=== PATIENT | male | born 1975 | race Caucasian/White ===

== ENCOUNTER 2024-06-19 11:10 | Outpatient (CLI) | payer OTHER, SELFPAY ==
--- NOTE | 2024-06-19 11:18 | EST_ITS ---
Patient Info Name: Edilson Alvarado Age: 48 years : 1975 Gender: Male Ht: 71 in Wt: 210 lbs BSA: 2.21 m2 HR: 63 bpm BP: 139 / 72 mmHg Exam Date: 06/19/2024 11:22 AM Exam Location: Echo Lab Patient Status: Outpatient Admit Date: 06/19/2024 Staff Ordering Physician: Radha Wisdom PA-C Attending Provider: Radha Wisdom PA-C Exercise Technologist: Elma Aponte [facility] Exercise Physician: Laurent Dunham DO Exam Type: CA stress test treadmill Study Info A treadmill exercise stress test was performed. Summary 1. 1. Negative Stewart exercise stress test for ischemic ST changes by ECG criteria. 2. 2. Good functional capacity, achieving 12 METs of workload. 3. 3. Appropriate HR response to exercise. 4. 4. Appropriate HR recovery at 1 minute post exercise. 5. 5. No imaging with stress testing. 6. 6. Patient informed of the above results. Protocol: Stewart Stress ECG Details Stage: REST Duration (min): 0 min : 59 sec Speed (mph): 0.0 Grade (%): 0 HR (bpm): 64 SBP (mmHg): 139 DBP (mmHg): 72 METS: --- Stage: REST Duration (min): 3 min : 40 sec Speed (mph): 0.0 Grade (%): 0 HR (bpm): 68 SBP (mmHg): 139 DBP (mmHg): 72 METS: --- Stage: STAGE 1 Duration (min): 1 min : 0 sec Speed (mph): 1.7 Grade (%): 10 HR (bpm): 103 SBP (mmHg): 139 DBP (mmHg): 72 METS: --- Stage: STAGE 1 Duration (min): 2 min : 0 sec Speed (mph): 1.7 Grade (%): 10 HR (bpm): 116 SBP (mmHg): 139 DBP (mmHg): 72 METS: --- Stage: STAGE 1 Duration (min): 3 min : 0 sec Speed (mph): 1.7 Grade (%): 10 HR (bpm): 121 SBP (mmHg): 180 DBP (mmHg): 75 METS: --- Stage: STAGE 2 Duration (min): 1 min : 0 sec Speed (mph): 2.5 Grade (%): 12 HR (bpm): 122 SBP (mmHg): 180 DBP (mmHg): 75 METS: --- Stage: STAGE 2 Duration (min): 2 min : 0 sec Speed (mph): 2.5 Grade (%): 12 HR (bpm): 127 SBP (mmHg): 165 DBP (mmHg): 73 METS: --- Stage: STAGE 2 Duration (min): 3 min : 0 sec Speed (mph): 2.5 Grade (%): 12 HR (bpm): 133 SBP (mmHg): 165 DBP (mmHg): 73 METS: --- Stage: STAGE 3 Duration (min): 1 min : 0 sec Speed (mph): 3.4 Grade (%): 14 HR (bpm): 143 SBP (mmHg): 183 DBP (mmHg): 58 METS: --- Stage: STAGE 3 Duration (min): 2 min : 0 sec Speed (mph): 3.4 Grade (%): 14 HR (bpm): 144 SBP (mmHg): 183 DBP (mmHg): 58 METS: --- Stage: STAGE 3 Duration (min): 3 min : 0 sec Speed (mph): 3.4 Grade (%): 14 HR (bpm): 146 SBP (mmHg): 150 DBP (mmHg): 84 METS: --- Stage: STAGE 4 Duration (min): 1 min : 0 sec Speed (mph): 4.2 Grade (%): 16 HR (bpm): 156 SBP (mmHg): 150 DBP (mmHg): 84 METS: --- Stage: STAGE 4 Duration (min): 1 min : 0 sec Speed (mph): 4.2 Grade (%): 16 HR (bpm): 156 SBP (mmHg): 150 DBP (mmHg): 84 METS: --- Stage:
== END 2024-06-19 11:11 | disposition home or self-care (01) ==
LOC: ANHCARD 11:12
PROVIDERS: PCP Family Medicine; Visit Provider Student in an Organized Health Care Education/Training Program
DX: R06.02 Shortness of breath (principal)
CPT/HCPCS: 93017

== ENCOUNTER 2025-03-18 14:27 | Observation (INO) | payer BC, SELFPAY ==
--- NOTE | ~2025-03-18 | XR_ITS ---
CHEST RADIOGRAPH CLINICAL HISTORY: pre-op . COMPARISON: 09/02/2013 TECHNIQUE: Single portable view of the chest. FINDINGS The cardiomediastinal silhouette is enlarged, likely secondary to technique. Asymmetry of the left upper lobe, possibly vascular in origin for which further evaluation (not emerg ently) may be performed. The lungs are otherwise clear. IMPRESSION: No focal infiltrate or effusion. Asymmetry of the left upper lobe possibly vascular in origin for which noncontrast enhanced CT is sug gested as nonemergent follow-up Reviewed, dictated and finalized at location A. IMPRESSION: No focal infiltrate or effusion. Asymmetry of the left upper lobe possibly vascular in origin for which noncontr ast enhanced CT is suggested as nonemergent follow-up
--- NOTE | ~2025-03-18 | XR_ITS ---
HISTORY: injury COMPARISON: None TECHNIQUE: 4 views of the right ankle were performed FINDINGS: Acute fractures involving 1. Distal fibula: Impaction and lateral deviation of the distal fracture fragment. 2. Distal tibia: Medial deviation of the distal tibial in relation to the talus is identified with la teral dislocation of the distal fracture fragment. 3. Distal tibia: Additional fracture of the posterior malleolus is suspected, with posterior and caud al displacement of the fracture fragment. Indeterminate preservation of the dome of the talus. Significant soft tissue swelling. Bone mineralization is age-appropriate. IMPRESSION: Complex trimalleolar fracture with indeterminate preservation of the dome of the talus. Reviewed, dictated and finalized at location A. IMPRESSION: Complex trimalleolar fracture with indeterminate preservation of t he dome of the talus.
--- NOTE | ~2025-03-18 | XR_ITS ---
HISTORY: Post reduction COMPARISON: Previous imaging performed 30 minutes earlier TECHNIQUE: 3 views of the right ankle were performed FINDINGS: Redemonstration of a trimalleolar fracture. Improved (although nonanatomic) alignment post reduction. IMPRESSION: As above Reviewed, dictated and finalized at location A. IMPRESSION: As above
--- NOTE | ~2025-03-18 | XR_ITS ---
EXAMINATION: XR surgery orthopedic DATE: 03/19/2025 16:50 INDICATION: ORIF right ankle fracture TECHNIQUE: 4 fluoroscopic images of the right ankle were obtained during procedure performed by Dr. Gladys molina. Radiologist was not present for the imaging or procedure. The amount of fluoroscopy time used during this procedure was 0.2 minutes. Total DAP was 0.113 Gycm^2. COMPARISON: 03/18/2025 FINDINGS: Interval open reduction and internal fixation of previous noted trimalleolar fracture of the right an kle which is now in near-anatomic alignment. The medial malleolus fracture is fixed with a pair of ca nnulated lag screws. The lateral malleolus fracture is fixed with a lateral plate and screws. The pos terior malleolus fracture remains unfixed but is obscured on the lateral projection by the lateral pl ate and screws. Ankle mortise is congruent. No new fractures identified. IMPRESSION: 1. Near-anatomic alignment post open reduction internal fixation of a trimalleolar fracture of the ri ght ankle. Reviewed, dictated and finalized at location B. IMPRESSION: 1. Near-anatomic alignment post open reduction internal fixation of a trimalleo lar fracture of the right ankle.
--- OUTSIDE RECORDS SUMMARY | 2025-03-18 14:29 | XMS_ITS | Clinical Summary ---
Author Organization [facility] Address [address] [place] [id number] Care Team Providers Care Blister Pack Operator Name Role Phone Unavailable Primary Care Provider Unavailabl e Allergies No known active allergies Medications No known medications Active Problems No known active problems Social History Tobacco Use Types Packs/Day Years Used Date Smoking Tobacco: Former Smokeless Tobacco: Never Sex and Gender Information Value Date Recorded Sex Assigned at Not on file Legal Sex Male 10:50 PM CDT Gender Identity Not on file Sexual Orientation Not on file Last Filed Vital Signs Vital Sign Reading Time Taken Comments Blood Pressure 125/85 06/06/2021 12:59 PM CDT Pulse 72 06/06/2021 12:59 PM CDT Temperature 35.7 C (96.3 F) 06/06/2021 12:59 PM CDT Respiratory Rate 16 06/06/2021 12:59 PM CDT Oxygen Saturation 96% 06/06/2021 12:59 PM CDT Inhaled Oxygen Concentration - - Weight 90.7 kg (200 lb) 06/06/2021 12:59 PM CDT Height 180.3 cm (5' 11) 06/06/2021 12:59 PM CDT Body Mass Index 27.89 06/06/2021 12:59 PM CDT Plan of Treatment Health Maintenance Due Date Last Done Comments DTAP/TDAP/TD VACCINES (1 - Tdap) 1995 HEPATITIS B VACCINES (1 of 3 - 19+ 3-dose series) 06/05 COLORECTAL SCREENING 2021 Colorectal Cancer Screening 2021 FIT-DNA Q 3 years 2021 FIT/FOBT Q 1 year 2021 Flex Sig/CT Colonography Q 5 years 2021 INFLUENZA VACCINE (#1) 2024 Insurance [facility] OPEN ACCESS PLUS
[2025-03-18 14:34] VITALS: BP 143/85; PULSE 65; RESP 14; TEMP 36.6; O2SAT 97
--- NOTE | 2025-03-18 14:41 | ED.GENADULT ---
HPI - General Adult General Chief complaint: Extremity Injury, Lower Stated complaint: right ankle injury Time Seen by Provider: 03/18/25 14:29 History of Present Illness HPI narrative: 49-year-old male present to the emergency department for evaluation for a right ankle injury. Patient reports he was carrying a ladder and stumble then rolled his right ankle. Patient does have a deformity of his right ankle. Patient is neurovascularly intact for the right ankle. Patient denies striking his head denies loss of consciousness. Patient states he did drink some water prior to arrival but had no improved within the last 3 hours. Patient denies any significant underlying medical issues or medication allergies or issues with sedation. Related Data Allergies Allergy/AdvReac Type Severity Reaction Status Date / Time No Known Allergies Allergy Verified 03/18/25 14:41 Review of Systems Review of Systems: All systems reviewed & are unremarkable except as noted in HPI and below PMFSH Surgical History Surgical History History of unilateral orchiectomy right Social History Social History Social History: Smoking packs per day: 0.25 Smoking cigarettes per day: 5.0 Years smoked: 10 Smoking pack-years: 2.50 Smoking status: Former smoker Tobacco type: cigarettes Second hand tobacco smoke exposure: No Smoking end date: 10/04/04 Alcohol intake: current Alcohol use details: Occasionally Substance use: never Substance use type: does not use Do You Feel Safe in your Home?: Yes Lack of Transportation: No Lack of Food: Never True Current Housing: I Have Housing Concerned About Future Housing: No Difficulty Paying Gas/Electric Bills: No Difficulty Paying for Meds: No Currently Unemployed: No Education: Don't Know Difficulty w/ Childcare or Family Care: No Living arrangements: with family Occupation/Education: occupation Gender identity (if verbalized by the patient): Male Sexual Orientation (if Verbalized by the Patient): Straight or Heterosexual Exam Narrative: APPEARANCE: Uncomfortable appearing HEAD: normocephalic, atraumatic. EYES: PERRLA/EOMI, conjunctivae clear. NOSE: Normal no drainage EARS:TMS clear with good light reflex. THROAT: Pharynx clear, no exudate. NECK: Supple. No adenopathy, no masses. RESPIRATORY: Airway patent, respirations nonlabored. Clear to auscultation bilaterally, no rales, rhonchi, wheezing. CARDIOVASCULAR: Regular rate and rhythm without murmurs rubs or gallops. ABDOMINAL: Soft, nontender, nondistended, normal bowel sounds MUSCULOSKELETAL: Deformity of the right ankle, neurovascularly intact NEURO: Alert. Cranial nerves II through XII intact. Good gait. Good coordination SKIN: Warm, dry. Normal Color Course Vital Signs Vital signs: Vital Signs Temperature 98 F 03/18/25 14:34 Pulse Rate 65 03/18/25 14:34 Respiratory Rate 14 03/18/25 14:34 Blood Pressure 143/85 H 03/18/25 14:34 Pulse Oximetry 97 03/18/25 14:34 Oxygen Delivery Room Air 03/18/25 14:34 Temperature 98.1 F 03/18/25 15:36 Pulse Rate 67 03/18/25 15:36 Respiratory Rate 16 03/18/25 15:36 Blood Pressure 137/82 03/18/25 15:36 Pulse Oximetry 95 03/18/25 15:36 Oxygen Delivery Room Air 03/18/25 15:36 Procedures Orthopedic Joint Reduction Joint #1: Orthopedic Joint Reduction Date: 03/18/25 Orthopedic Joint Reduction Time: 14:43 Time Out Performed: Yes Side: right Joint Reduction Location: ankle Analgesia: procedural sedation Pre-Procedure Neuro Vascular Exam: normal Technique used: traction/counter-traction Post-reduction neuro exam: intact Post-reduction vascular: intact Post Reduction X-Ray Obtained: Yes Post Reduction X-Ray Results: reduced Splint Applied: Yes Patient Tolerated Procedure: well and no complications Procedural Sedation Procedural Sedation #1: Procedural Sedation Date: 03/18/25 Procedural Sedation Time: 15:00 Presedation Evaluation: APPEARANCE: Well appearing, no pain, no distress, well-nourished. HEAD: normocephalic, atraumatic. EYES: PERRLA/EOMI, conjunctivae clear. NOSE: Normal no drainage EARS:TMS clear with good light reflex. THROAT: Pharynx clear, no exudate. NECK: Supple. No adenopathy, no masses. RESPIRATORY: Airway patent, respirations nonlabored. Clear to auscultation bilaterally, no rales, rhonchi, wheezing. CARDIOVASCULAR: Regular rate and rhythm without murmurs rubs or gallops. ABDOMINAL: Soft, nontender, nondistended, normal bowel sounds MUSCULOSKELETAL: Right ankle deformity NEURO: Alert. Cranial nerves II through XII intact. Good gait. Good coordination SKIN: Warm, dry. Normal Color Procedure: Disease with sedation for a reduction and splinting of a right ankle dislocation and trimalleolar fracture Provider Performed: sedation and procedure Time Out: Time-out was performed Informed Consent Obtained: yes Equipment in Room: bag and mask, capnography, monitoring analyst, crash cart, oxygen, pulse oximeter and suction Plan for Sedation: moderate sedation ASA Class: I Mallampati Classification: class I NPO Status: last solid food (hours ago) Explanation to Patient/Family: Risk/Benefits/Alternatives and Pt/Family agreed with plan Pt. Educated on Procedural Sedation: Yes Re-evaluated immediately prior: Yes Preparation: monitoring analyst applied, pulse oximeter, capnometry used, supplemental O2 applied, reversal agents at bedside, suction/airway equipment at bedside and IV secured IV Propofol dose (mg): 160 (80 and 80) Patient Tolerated Procedure: well Complications: hypoxia Interventions: oxygen applied and airway repositioned Total Sedation Time (min): 10 Medical Decision Making MDM Narrative Medical decision making narrative: 49-year-old male presents to the emergency department for evaluation a right ankle injury. Patient was sedated using propofol for a reduction and splinting a trimalleolar fracture of the right ankle. Patient is currently afebrile but does have a leukocytosis of 14.3 hemoglobin of 13.8. Patient's INR is 1.0. Patient is not take any blood thinners. Patient has no acute abnormalities on his CMP does have a hemoglobin A1c of 6.1. Vital signs are elevated to 29 cholesterol is 242. Chest x-ray showed no focal infiltrate. Initial x-ray of the ankle showed a trimalleolar fracture with significant dislocation and this was successfully reduced and splinted. Patient did feel improved. Case was discussed with Orthopedics and they were consulted. Case was discussed with hospitalist and their service for admission. Patient family were updated on the results of the workup plan for admission. All questions concerns were addressed patient was comfortable the plan for admission. Differential Diagnosis Differential Diagnosis: Trimalleolar fracture, ankle dislocation, ankle sprain, proximal tib-fib fracture, foot fracture Vital Signs Vital Signs: Vital Signs Temperature 98 F 03/18/25 14:34 Pulse Rate 65 03/18/25 14:34 Respiratory Rate 14 03/18/25 14:34 Blood Pressure 143/85 H 03/18/25 14:34 Pulse Oximetry 97 03/18/25 14:34 Oxygen Delivery Room Air 03/18/25 14:34 Temperature 98.1 F 03/18/25 15:36 Pulse Rate 67 03/18/25 15:36 Respiratory Rate 16 03/18/25 15:36 Blood Pressure 137/82 03/18/25 15:36 Pulse Oximetry 95 03/18/25 15:36 Oxygen Delivery Room Air 03/18/25 15:36 Lab Data Lab results reviewed: Yes I reviewed the patient's lab results. 03/18/25 15:39 03/18/25 15:39 Labs: Lab Results 03/18/25 Range/Units 15:39 WBC 14.3 H (4.5-10.0) K/mm3 RBC 4.81 (4.6-6.20) M/mm3 Hgb 13.8 L (14.0-18.0) g/dL Hct 42.1 (42.0-52.0) % MCV 87.5 (80-100) fl MCH 28.7 (26-34) pg MCHC 32.8 (32-36) g/dl RDW 13.2 (11.5-14.5) % Plt Count 198 (150-375) k/mm3 MPV 11.6 H (7.4-10.4) fl Immature Gran % (Auto) 0.4 (0-0.5) % Neut % (Auto) 82.7 H (45.5-73.1) % Lymph % (Auto) 9.0 L (18.3-44.2) % [place] % (Auto) 4.9 (2.6-8.5) % Eos % (Auto) 2.4 (0-4.4) % Baso % (Auto) 0.6 (0.2-1.2) % Lymph # (Auto) 1.29 (0.9-3.2) K/mm3 [place] # (Auto) 0.7 H (0.1-0.6) K/mm3 Eos # (Auto) 0.3 (0-0.3) K/mm3 Baso # (Auto) 0.1 (0.0-0.1) K/mm3 Abs Immat Gran (auto) 0.05 H (0.00-0.031) K/mm3 Absolute Neuts (auto) 11.8 H (1.3-6.7) K/mm3 Absolute Nucleated RBC 0.000 (0.0-0.012) K/mm3 Nucleated RBC % 0.0 (0.0-0.2) % PT 12.9 (11.1-14.7) Seconds INR 1.0 APTT 24.4 (22.3-36.8) Seconds Sodium 139 (137-145) mmol/L Potassium 4.8 (3.4-5.0) mmol/L Chloride 106 (98-107) mmol/L Carbon Dioxide 22 (22-30) mmol/L Anion Gap 11 (4-12) mmol/L BUN 19 (9-20) mg/dL Creatinine 1.16 (0.7-1.3) mg/dL Estim Creat Clear Calc 84 ml/min Estimated GFR > 60 (59 - ) Glucose 95 (65-110) mg/dL Hemoglobin A1c 6.1 H (<5.7) % Calcium 9.9 (8.4-10.2) mg/dL Total Bilirubin 0.5 (0.2-1.3) mg/dL AST 38 (17-59) U/L ALT 33 (6-50) U/L Alkaline Phosphatase 41 (38-126) U/L Total Protein 7.8 (6.3-8.2) g/dL Albumin 4.6 (3.5-5.1) g/dL Triglycerides 229 H (<150) mg/dL Cholesterol 242 H (0-200) mg/dL LDL Cholesterol Direct 132 mg/dL HDL Direct 61 mg/dL Imaging Data Radiologist's impression: Impressions Ankle X-Ray 03/18/25 14:55 IMPRESSION: Complex trimalleolar fracture with indeterminate preservation of the dome of the talus. Ankle X-Ray 03/18/25 15:35 IMPRESSION: As above Chest X-Ray 03/18/25 15:37 IMPRESSION: No focal infiltrate or effusion. Asymmetry of the left upper lobe possibly vascular in origin for which noncontrast enhanced CT is suggested as nonemergent follow-up Discharge Plan Discharge Clinical Impression: Closed trimalleolar fracture, Closed dislocation of ankle Patient Disposition: Still a Patient Condition: Stable
[2025-03-18 14:58] VITALS: BP 146/95; PULSE 88; RESP 16; TEMP 36.8; O2SAT 97
[2025-03-18 15:01] VITALS: BP 125/77; PULSE 83; RESP 14; TEMP 36.9; O2SAT 94
--- OUTSIDE RECORDS SUMMARY | 2025-03-18 15:04 | XMS_ITS | Clinical Summary ---
Author Organization [facility] Address [address] [place] [id number] Care Team Providers Care Shrub Planter Name Role Phone Unavailable Primary Care Provider [...] years 2021 INFLUENZA VACCINE (#1) 2024 Insurance [facility] OPEN ACCESS PLUS
[2025-03-18 15:21] VITALS: BP 120/68; PULSE 73; RESP 16; TEMP 36.8; O2SAT 99
--- NOTE | 2025-03-18 15:22 | ECG_ITS ---
Test Date: 2025-03-18 15:46:13 Measurements Intervals [place] Rate: 71 P: 62 MS: 175 QRS: 47 QRSD: 86 T: 61 QT: 359 QTc: 393 Interpretive Statements SINUS RHYTHM WITH SINUS ARRHYTHMIA LEFT ATRIAL ENLARGEMENT BASELINE ARTIFACT- I, II, III, AVR, AVL, AVF BORDERLINE ECG No previous ECG available for comparison Electronically Signed On 03-18-2025 17:22:20 CDT by Laurent Dunham D.O.
[2025-03-18 15:36] VITALS: BP 137/82; PULSE 67; RESP 16; TEMP 36.7; O2SAT 95
[2025-03-18 15:45] LABS: Basophils Absolute Auto 0.1 K/mm3 (0.0-0.1); Basophils Percent Auto 0.6 % (0.2-1.2); Eosinophils Absolute Auto 0.3 K/mm3 (0-0.3); Eosinophils Percent Auto 2.4 % (0-4.4); Hematocrit 42.1 % (42.0-52.0); Hemoglobin 13.8 g/dL (14.0-18.0); Immature Granulocyte Absolute 0.05 K/mm3 (0.00-0.031); Immature Granulocyte Percent A 0.4 % (0-0.5); Lymphocytes Absolute Auto 1.29 K/mm3 (0.9-3.2); Mean Corpuscular HGB Conc 32.8 g/dl (32-36); Mean Corpuscular Hemoglobin 28.7 pg (26-34); Mean Corpuscular Volume 87.5 fl (80-100); Mean Platelet Volume 11.6 fl (7.4-10.4); Monocytes Absolute Auto 0.7 K/mm3 (0.1-0.6); Monocytes Percent Auto 4.9 % (2.6-8.5); Neutrophils Absolute Auto 11.8 K/mm3 (1.3-6.7); Neutrophils Percent Auto 82.7 % (45.5-73.1); Platelet Count Result 198 k/mm3 (150-375); Red Blood Count 4.81 M/mm3 (4.6-6.20); Red Cell Distribution Width 13.2 % (11.5-14.5); White Blood Count 14.3 K/mm3 (4.5-10.0)
[2025-03-18 15:54] LABS: Alanine Aminotransferase 33 U/L (6-50); Albumin Level 4.6 g/dL (3.5-5.1); Alkaline Phosphatase 41 U/L (38-126); Anion Gap 11 mmol/L (4-12); Aspartate Amino Transferase 38 U/L (17-59); Bilirubin,Total 0.5 mg/dL (0.2-1.3); Blood Urea Nitrogen 19 mg/dL (9-20); Calcium 9.9 mg/dL (8.4-10.2); Carbon Dioxide 22 mmol/L (22-30); Chloride 106 mmol/L (98-107); Estimated CRCL calculation 84 ml/min; Estimated Glomerular Filt Rate > 60; Glucose 95 mg/dL (65-110); Potassium 4.8 mmol/L (3.4-5.0); Sodium 139 mmol/L (137-145); Total Protein 7.8 g/dL (6.3-8.2)
[2025-03-18 15:57] LABS: Prothrombin Time 12.9 Seconds (11.1-14.7)
[2025-03-18 15:58] LABS: Partial Thromboplastin Time 24.4 Seconds (22.3-36.8)
--- NOTE | 2025-03-18 16:33 | PC.NURSE ---
Dr. Curt CABRALES pushed propofol 80mg at 1459. Second propofol dose of 80mg pushed at 1501
--- NOTE | 2025-03-18 16:44 | P.HP_ITS ---
H&P: HPI History of Present Illness Date/Time: 03/18/25 16:44 Chief Complaint: Right ankle fracture/dislocation Narrative: This is a 49-year-old male patient with a past history of hyperlipidemia with elevated triglycerides and GERD who is admitted to the hospital for displaced right trimalleolar ankle fracture. Patient was carrying a ladder on a slope when his right ankle twisted under him causing immediate deformity. Patient was seen in the emergency department and x-ray showed displaced trimalleolar ankle fracture. Patient underwent moderate sedation with attempted close reduction in the emergency department. Motor sensation cap refill intact. OCL splint placed. Orthopedics consulted plans to go to the operating room tomorrow for open reduction and fixation and requested hospitalist service admit patient, NPO after midnight. Patient has medical history that includes GERD for which he takes Nexium OTC every morning. He also takes Crestor for chronically elevated cholesterol and triglycerides. Added lipid panel and Hemoglobin A1c to labs. Some improvement noted (patient reports he added fish oil to his vitamins daily) since December 2024 labs at another facility. Discussed increasing Crestor dose and patient was agreeable. Also let patient know that A1c is on the line between pre-diabetes and actual diabetes and he will need to follow up with PCP regarding both abnormal labs. Review of Systems Review of Systems: All systems reviewed & are unremarkable except as noted in HPI and below [facility] Surgical History Surgical History History of unilateral orchiectomy right Social History Social History Social History: Smoking packs per day: 0.25 Smoking cigarettes per day: 5.0 Years smoked: 10 Smoking pack-years: 2.50 Smoking status: Former smoker Tobacco type: cigarettes Second hand tobacco smoke exposure: No Smoking end date: 10/04/04 Alcohol intake: current Drinks per week: 3 Alcohol use details: Occasionally Substance use: never Substance use type: does not use Do You Feel Safe in your Home?: Yes Lack of Transportation: No Lack of Food: Never True Current Housing: I Have Housing Concerned About Future Housing: No Difficulty Paying Gas/Electric Bills: No Difficulty Paying for Meds: No Currently Unemployed: No Education: Decline to Answer Difficulty w/ Childcare or Family Care: No Living arrangements: with family Occupation/Education: occupation Gender identity (if verbalized by the patient): Male Sexual Orientation (if Verbalized by the Patient): Straight or Heterosexual Spiritual care concerns: No Meds Home Medications and Allergies Home Medications ?Medication ?Instructions ?Recorded ?Confirmed ?Type esomeprazole magnesium 20 mg 20 mg PO DAILY #1 cap 06/21/20 03/18/25 Rx capsule,delayed release (Nexium 24HR) rosuvastatin 5 mg tablet 5 mg PO DAILY #90 tabs 02/09/25 03/18/25 Rx Allergies Allergy/AdvReac Type Severity Reaction Status Date / Time No Known Allergies Allergy Verified 03/18/25 14:41 Vital Signs Vital Signs - 24 hr 03/18/25 14:34 03/18/25 14:58 03/18/25 15:01 Temperature 36.6 C 36.8 C 36.9 C Pulse Rate 65 Pulse Rate [Monitor] 88 83 Respiratory Rate 14 16 14 Blood Pressure 143/85 H Blood Pressure [Left Arm] 146/95 H 125/77 Pulse Oximetry 97 97 94 Oxygen Delivery Room Air Room Air Room Air 03/18/25 15:21 03/18/25 15:36 Temperature 36.8 C 36.7 C Pulse Rate Pulse Rate [Monitor] 73 67 Respiratory Rate 16 16 Blood Pressure Blood Pressure [Left Arm] 120/68 137/82 Pulse Oximetry 99 95 Oxygen Delivery Room Air Room Air Exam Narrative: APPEARANCE: Well appearing, no pain, no distress, well-nourished. HEENT: normocephalic, atraumatic, PERRLA/EOMI NECK: Supple. No adenopathy, no masses. RESPIRATORY: Airway patent, respirations nonlabored. Clear to auscultation bilaterally, no rales, rhonchi, wheezing. CARDIOVASCULAR: Regular rate and rhythm without murmurs rubs or gallops. ABDOMINAL: Soft, nontender, nondistended, normal bowel sounds MUSCULOSKELETAL: Right ankle splint intact, cap refill, movement, sensation intact NEURO: Alert. Cranial nerves II through XII intact. Good coordination SKIN: Warm, dry. Normal Color PSYCHIATRIC: Normal affect/mood. H&P: Results Labs Labs: Short CBC 03/18/25 Range/Units 15:39 WBC 14.3 H (4.5-10.0) K/mm3 Hgb 13.8 L (14.0-18.0) g/dL Hct 42.1 (42.0-52.0) % Plt Count 198 (150-375) k/mm3 BMP 03/18/25 15:39 Sodium 139 Potassium 4.8 Chloride 106 Carbon Dioxide 22 BUN 19 Creatinine 1.16 Glucose 95 Calcium 9.9 Liver Function 03/18/25 Range/Units 15:39 Total Bilirubin 0.5 (0.2-1.3) mg/dL AST 38 (17-59) U/L ALT 33 (6-50) U/L Alkaline Phosphatase 41 (38-126) U/L Albumin 4.6 (3.5-5.1) g/dL Pulse Oximetry SpO2 results: 94-99% on room air Attestation: I personally reviewed and interpreted this pulse oximetry as follows: Interpretation: No need for supplemental oxygenation at this time ECG Attestation: I personally reviewed and interpreted this ECG as follows: ECG completion date: 03/18/25 ECG completion time: 15:46 Prior ECG tracings: not available for review Interpretation: Sinus arrhythmia rate of 71 VT interval 175 QRS duration 86 QTC 393 R axis 47, no STEMI Imaging XR Right ankle pre reduction: Radiologist's impression: HISTORY: injury COMPARISON: None TECHNIQUE: 4 views of the right ankle were performed FINDINGS: Acute fractures involving 1. Distal fibula: Impaction and lateral deviation of the distal fracture fragment. 2. Distal tibia: Medial deviation of the distal tibial in relation to the talus is identified with lateral dislocation of the distal fracture fragment. 3. Distal tibia: Additional fracture of the posterior malleolus is suspected, with posterior and caudal displacement of the fracture fragment. Indeterminate preservation of the dome of the talus. Significant soft tissue swelling. Bone mineralization is age-appropriate. IMPRESSION: Complex trimalleolar fracture with indeterminate preservation of the dome of the talus. Reviewed, dictated and finalized at location A. XR Right ankle post ER closed reduction: Radiologist's impression: HISTORY: Post reduction COMPARISON: Previous imaging performed 30 minutes earlier TECHNIQUE: 3 views of the right ankle were performed FINDINGS: Redemonstration of a trimalleolar fracture. Improved (although nonanatomic) alignment post reduction. IMPRESSION: As above Reviewed, dictated and finalized at location A. Chest x-ray: Radiologist's impression: CHEST RADIOGRAPH CLINICAL HISTORY: pre-op . COMPARISON: 09/02/2013 TECHNIQUE: Single portable view of the chest. FINDINGS The cardiomediastinal silhouette is enlarged, likely secondary to technique. Asymmetry of the left upper lobe, possibly vascular in origin for which further evaluation (not emergently) may be performed. The lungs are otherwise clear. IMPRESSION: No focal infiltrate or effusion. Asymmetry of the left upper lobe possibly vascular in origin for which noncontrast enhanced CT is suggested as nonemergent follow-up Reviewed, dictated and finalized at location A. Assessment and Plan Assessment and plan (1) Trimalleolar fracture of right ankle: Code(s): S82.851A - Displaced trimalleolar fracture of right lower leg, initial encounter for closed fracture Status: Acute Assessment and Plan: -S/P closed reduction and splinting in ER with continued displacement though better aligned than initial XR -Admit to observation status for pain management and operative repair tomorrow (2) Mixed hyperlipidemia: Code(s): E78.2 - Mixed hyperlipidemia Status: Chronic Assessment and Plan: -Lipid panel remains abnormal including elevated triglycerides, elevated total cholesterol and LDL 137. -Discussed increasing Crestor dose from 5 mg to 20 mg and patient in agreement -Patient also sometimes takes baby aspirin for CV prevention, will hold for now since he is going to OR tomorrow for ankle repair. (3) Gastroesophageal reflux disease: Code(s): K21.9 - Gastro-esophageal reflux disease without esophagitis Status: Chronic Assessment and Plan: -Continue PPI and PRN meds if needed for heartburn (4) Elevated hemoglobin A1c: Code(s): R73.09 - Other abnormal glucose Status: Acute Assessment and Plan: -A1c 6.1 on admission Quality VTE Prophylaxis VTE prophylaxis: mechanical ordered If No VTE Prophylaxis Answer both mechanical and pharmacologic: Reason no pharmacologic proph: medical contraindication (Going to OR on 03/19) active bleeding/bleeding risk Hospitalist [facility] Advance Care Plan I have confirmed that the patient's Advanced Care Plan is present, code status is documented, or surrogate decision maker is listed in patient medical record.: Yes Medication Reconciliation I have utilized all available resources to obtain, update and review the patients current medications (includes all prescriptions, OTC, herbals, cannabis, and nutritional supplements).: Yes
[2025-03-18 17:13] LABS: Cholesterol 242 mg/dL (0-200); HDL Direct 61 mg/dL; Triglycerides 229 mg/dL (<150)
[2025-03-18 17:21] LABS: Hemoglobin A1C 6.1 % (<5.7)
[2025-03-18 17:23] LABS: LDL Cholesterol Direct 132 mg/dL
--- NOTE | 2025-03-18 17:54 | ADMGEN ---
This patient, Edilson Alvarado, was admitted to 3 Med Surg Room 309-01. Patient/family oriented to hospital policies and general routines including ID bracelet, bed and alarms, visiting hours, pain management, procedures, bathroom and other care routines, personal items, smoking policy, room service/diet, and visiting hours. Information on how to activate the Rapid Response Team has been discussed. Patient/Family are encouraged to report perceived risks to care and to ask questions if they do not understand what they are told or what they should do.
[2025-03-18] MEDS: HYDROmorphone HCL INJ (*CRX) 2 MG/ML VIAL 0.5 MG IV PUSH ×2 (18:14→22:10)
[2025-03-18 20:26] VITALS: BP 129/67; PULSE 73; RESP 16; TEMP 36.9; O2SAT 98
[2025-03-18] MEDS: HYDROcodone/acetaminophen (*CRX) 5-325 MG TABLET 1 TAB PO (21:00)
[2025-03-19] VITALS (12 sets, daily range): BP systolic 115–144; BP diastolic 70–93; PULSE 67–86; RESP 11–18; TEMP 36.1–37.7; O2SAT 91–100
[2025-03-19] MEDS: HYDROcodone/acetaminophen (*CRX) 5-325 MG TABLET 1 TAB PO ×2 (01:17→09:34)
[2025-03-19] MEDS: HYDROmorphone HCL INJ (*CRX) 2 MG/ML VIAL 0.5 MG IV PUSH ×3 (02:24→12:01)
--- NOTE | 2025-03-19 07:26 | P.PNIM_ITS ---
Progress Note: A&P Assessment and Plan (1) Trimalleolar fracture of right ankle: Code(s): S82.851A - Displaced trimalleolar fracture of right lower leg, initial encounter for closed fracture Status: Acute Assessment and Plan: Mechanical fall resulting in right ankle deformity. Denies LOC or head strike. - Right ankle XR: Complex trimalleolar fracture with indeterminate preservation of the dome of the talus. - S/P closed reduction and splinting in ER with continued displacement though better aligned than initial XR - Analgesics - PT/OT per ortho recommendations - Ortho consulted Plan for ORIF right ankle with Dr. Garrett today. (2) Mixed hyperlipidemia: Code(s): E78.2 - Mixed hyperlipidemia Status: Chronic Assessment and Plan: -Lipid panel remains abnormal including elevated triglycerides 229, elevated total cholesterol 242, and LDL 137. Crestor dose from 5 mg to 20 mg and patient in agreement - Patient also sometimes takes baby aspirin for CV prevention, will hold for now since he is going to OR tomorrow for ankle repair. (3) Gastroesophageal reflux disease: Code(s): K21.9 - Gastro-esophageal reflux disease without esophagitis Status: Chronic Assessment and Plan: -Continue PPI and PRN meds if needed for heartburn (4) Elevated hemoglobin A1c: Code(s): R73.09 - Other abnormal glucose Status: Acute Assessment and Plan: - Patient prediabetic with A1c 6.1 on admission - Educated and encouraged healthy diet and exercise - Follow up with PCP Time Spent With Patient Time with patient: 25 - 35 minutes Subjective Date/time seen: 03/19/25 07:26 Interval history: 49-year-old male patient with a past history of hyperlipidemia with elevated triglycerides and GERD who presents to the hospital for displaced right trimalleolar ankle fracture. Patient was carrying a ladder on a slope when his right ankle twisted under him causing immediate deformity. Patient is pleasant sitting up comfortably in his bed with his foot elevated. He endorses throbbing/aching to the extremity but denies any tingling/numbness or shooting pain. He has no other complaints denying chest pain, shortness of breath, palpitations, nausea/vomiting and abdominal pain. Review of Systems Review of Systems: All systems reviewed & are unremarkable except as noted in HPI and below Exam Narrative: AF HR 71 RR 16 Spo2 98 BP 118/72 General: male in no acute respiratory distress who is nontoxic appearing, sitting gup in bed HEENT: Normocephalic. Atraumatic. Extraocular movement intact. Sclera clear and anicteric. No facial asymmetry. Chest: Lungs are clear to auscultation bilaterally. No wheezes or crackles. CV: Heart was regular rate and rhythm. S1/S2. No murmurs, gallops, or rubs. Abd: Abdomen was soft. Nontender. Nondistended. Positive bowel sounds. Ext: No clubbing, cyanosis, or edema. DP pulses bilaterally. Right lower extremity in soft cast. Sensation intact. Wiggling toes. Neuro: Patient is alert and oriented x3. Speech is clear. Objective Data Vital Signs Vital Signs: Vital Signs - 24 hr 03/18/25 14:34 03/18/25 14:58 03/18/25 15:01 Temperature 98 F 98.3 F 98.4 F Pulse Rate 65 Pulse Rate [Monitor] 88 83 Respiratory Rate 14 16 14 Blood Pressure 143/85 H Blood Pressure [Left Arm] 146/95 H 125/77 Pulse Oximetry 97 97 94 Oxygen Delivery Room Air Room Air Room Air 03/18/25 15:21 03/18/25 15:36 03/18/25 20:26 Temperature 98.2 F 98.1 F 98.4 F Pulse Rate 73 Pulse Rate [Monitor] 73 67 Respiratory Rate 16 16 16 Blood Pressure 129/67 Blood Pressure [Left Arm] 120/68 137/82 Pulse Oximetry 99 95 98 Oxygen Delivery Room Air Room Air 03/19/25 05:34 Temperature 97.1 F L Pulse Rate 71 Pulse Rate [Monitor] Respiratory Rate 16 Blood Pressure 118/72 Blood Pressure [Left Arm] Pulse Oximetry 98 Oxygen Delivery Intake/Output Intake/Output: Intake & Output 03/16/25 03/17/25 03/18/25 03/19/25 23:59 23:59 23:59 23:59 Intake Total 240 Output Total 725 500 Balance -485 -500 Meds/Results Medications: Active Medications Generic Name Dose Route Start Last Admin Trade Name Freq PRN Reason Stop Dose Admin Acetaminophen 650 mg 03/18/25 19:29 Acetaminophen 325 Mg Tablet PO Q4H PRN Mild Pain (1-3) or Fever Hydrocodone Bitart/Acetaminophen 1 tab 03/18/25 19:29 03/19/25 01:17 Hydrocodone/Acetaminophen (*Crx) 5-325 Mg Tablet PO 1 tab Q4H PRN Administration Pain Rated 4-6 Hydromorphone HCl 0.5 mg 03/18/25 15:44 03/19/25 02:24 Hydromorphone Hcl Inj (*Crx) 2 Mg/Ml Vial IV PUSH 0.5 mg Q4H PRN Administration Pain Rated 7-10 Ondansetron HCl 4 mg 03/18/25 19:34 Ondansetron Inj 4 Mg/2 Ml Vial IV PUSH Q4H PRN Nausea And Vomiting Pantoprazole Sodium 20 mg 03/19/25 06:30 Pantoprazole Sod Sesquihydrate 20 Mg Tab PO DAILY@0630 [facility] Rosuvastatin Calcium 20 mg 03/18/25 21:20 03/18/25 22:09 Rosuvastatin 20 Mg Tablet PO Not Given HS [facility] Radiology Results: ITS Impressions Ankle X-Ray 03/18/25 15:35 IMPRESSION: As above Chest X-Ray 03/18/25 15:37 IMPRESSION: No focal infiltrate or effusion. Asymmetry of the left upper lobe possibly vascular in origin for which noncontrast enhanced CT is suggested as nonemergent follow-up Labs Labs: Laboratory Results - last 24 hr 03/18/25 15:39 WBC 14.3 H RBC 4.81 Hgb 13.8 L Hct 42.1 MCV 87.5 MCH 28.7 MCHC 32.8 RDW 13.2 Plt Count 198 MPV 11.6 H Immature Gran % (Auto) 0.4 Neut % (Auto) 82.7 H Lymph % (Auto) 9.0 L [place] % (Auto) 4.9 Eos % (Auto) 2.4 Baso % (Auto) 0.6 Lymph # (Auto) 1.29 [place] # (Auto) 0.7 H Eos # (Auto) 0.3 Baso # (Auto) 0.1 Abs Immat Gran (auto) 0.05 H Absolute Neuts (auto) 11.8 H Absolute Nucleated RBC 0.000 Nucleated RBC % 0.0 PT 12.9 INR 1.0 APTT 24.4 Sodium 139 Potassium 4.8 Chloride 106 Carbon Dioxide 22 Anion Gap 11 BUN 19 Creatinine 1.16 Estim Creat Clear Calc 84 Estimated GFR > 60 Glucose 95 Hemoglobin A1c 6.1 H Calcium 9.9 Total Bilirubin 0.5 AST 38 ALT 33 Alkaline Phosphatase 41 Total Protein 7.8 Albumin 4.6 Triglycerides 229 H Cholesterol 242 H LDL Cholesterol Direct 132 HDL Direct 61 Quality VTE Prophylaxis VTE prophylaxis: mechanical ordered
[2025-03-19] MEDS: PANTOPRAZOLE SOD SESQUIHYDRATE 20 MG TAB PO (08:04)
--- NOTE | 2025-03-19 09:44 | P.CONOP_ITS ---
Assessment and Plan Assessment and plan (1) Trimalleolar fracture of right ankle: Qualifiers: Encounter type: initial encounter Fracture type: closed Q ualified Code(s): S82.851A - Displaced trimalleolar fracture of right lower leg, initial encounter for closed fracture <Britt DavidMARLO Castaneda - Last Filed: 03/19/25 11:13> Code(s): S82.851A - Displaced trimalleolar fracture of right lower leg, initial encounter for closed fracture <BrittMARLO Arndt - Last Filed: 03/19/25 11:13> Status: Acute <BrittMARLO Arndt - Last Filed: 03/19/25 11:13> Assessment and Plan: 49-year-old male with history of a right ankle injury after falling in his yd. History, exam and radiographs reviewed with the patient. Radiographs of the right ankle from the emergency room at reveal a trimalleolar ankle fracture which was reduced and splinted. The fracture type and injury as well as radiographs discussed with the patient. Operative and nonoperative treatment options reviewed. The patient elects for operative treatment. Discussed ORIF Right Ankle. Risks of surgery including but not limited to neurovascular damage, wound complications, blood clot, pulmonary embolus, stroke, myocardial infarction, anesthetic risks up to and including were reviewed. Continued pain and possible dysfunction were explained. No guarantees were offered. The patient understands and wishes to proceed. Plan: ORIF Right Ankle by Dr. Garrett Obtain consent. NPO. Bedrest. Splint in place. Keep c/d/i. Pain control. Ice. Elevate <MARLO De La Garza - Last Filed: 03/19/25 11:13> (2) Mixed hyperlipidemia: Code(s): E78.2 - Mixed hyperlipidemia <MARLO De La Garza - Last Filed: 03/19/25 11:13> Status: Chronic <MARLO De La Garza - Last Filed: 03/19/25 11:13> Assessment and Plan: Reviewed history, exam, radiographs and current labs with attending MD and covering surgeon, Dr. Garrett, who agrees with current plan as indicated above. No further recommendations from Dr. Garrett at this time. <MARLO De La Garza - Last Filed: 03/19/25 11:13> Dr. Garrett: History, exam, emergency room records and radiographs reviewed. Right ankle trimalleolar fracture with instability and displacement. Indicated for operative fixation. Patient would like to proceed. Discussed nonoperative and operative treatment options with the patient. Risks and benefits of each as well as alternatives were reviewed. All of the patient's questions were answered. The risks of surgery reviewed including but not limited to: Neurovascular damage, wound complication, infection, blood clot, pulmonary embolus, stroke, myocardial infarction, and anesthetic risks up to and including . Continued pain and possible dysfunction were explained. Specific risks of the procedure including later recurrence of deformity. No guarantees were offered. If hardware used, discussed risk of failure/ breakage and possible need for removal. If complications occur, the patient understands the need for further treatment, possible further surgery. Patient verbalizes understanding and wishes to proceed. PLAN: Open reduction internal fixation right ankle fracture <Tanner Garrett MD - Last Filed: 03/19/25 11:51> History of Present Illness HPI Consult date: 03/19/25 <MARLO De La Garza - Last Filed: 03/19/25 11:13> 03/19/25 <Tanner Garrett MD - Last Filed: 03/19/25 11:51> Consult reason: fracture <MARLO De La Garza - Last Filed: 03/19/25 11:13> Chief complaint: Right-Sided trimalleolar fracture <MARLO De La Garza - Last Filed: 03/19/25 11:13> Narrative: 49-year-old male admitted after a fall at home attempting to put a security camera up on his garage. He rolled his ankle which resulted in a right ankle fracture. He was admitted for further orthopedic evaluation. <MARLO De La Garza - Last Filed: 03/19/25 11:13> Review of Systems 2 Review of Systems: All systems reviewed & are unremarkable except as noted in HPI and below <MARLO De La Garza - Last Filed: 03/19/25 11:13> [facility] Past Medical History Medical History: Medical History (Updated 03/19/25 @ 11:50 by Tanner Garrett MD) Closed dislocation of ankle Gastroesophageal reflux disease Elevated hemoglobin A1c Mixed hyperlipidemia <MARLO De La Garza - Last Filed: 03/19/25 11:13> Surgical History Surgical History: Surgical History History of unilateral orchiectomy right <MARLO De La Garza - Last Filed: 03/19/25 11:13> Social History Social History: Social History Social History: Smoking packs per day: 0.25 Smoking cigarettes per day: 5.0 Years smoked: 10 Smoking pack-years: 2.50 Smoking status: Former smoker Tobacco type: cigarettes Second hand tobacco smoke exposure: No Smoking end date: 10/04/04 Alcohol intake: current Drinks per week: 3 Alcohol use details: Occasionally Substance use: never Substance use type: does not use Do You Feel Safe in your Home?: Yes Lack of Transportation: No Lack of Food: Never True Current Housing: I Have Housing Concerned About Future Housing: No Difficulty Paying Gas/Electric Bills: No Difficulty Paying for Meds: No Currently Unemployed: No Education: Decline to Answer Difficulty w/ Childcare or Family Care: No Living arrangements: with family Occupation/Education: occupation Gender identity (if verbalized by the patient): Male Sexual Orientation (if Verbalized by the Patient): Straight or Heterosexual Spiritual care concerns: No <MARLO De La Garza - Last Filed: 03/19/25 11:13> Meds Home Medications and Allergies Home medications: Home Medications ?Medication ?Instructions ?Recorded ?Confirmed ?Type esomeprazole magnesium 20 mg 20 mg PO DAILY #1 cap 06/21/20 03/18/25 Rx capsule,delayed release (Nexium 24HR) rosuvastatin 5 mg tablet 5 mg PO DAILY #90 tabs 02/09/25 03/18/25 Rx <MARLO De La Garza - Last Filed: 03/19/25 11:13> Allergies/Adverse reactions: Allergies Allergy/AdvReac Type Severity Reaction Status Date / Time No Known Allergies Allergy Verified 03/18/25 14:41 <Britt Brown [facility] - Last Filed: 03/19/25 11:13> Vital Signs Vital Signs - 24 hr 03/18/25 14:34 03/18/25 14:58 03/18/25 15:01 Temperature 36.6 C 36.8 C 36.9 C Pulse Rate 65 Pulse Rate [Monitor] 88 83 Respiratory Rate 14 16 14 Blood Pressure 143/85 H Blood Pressure [Left Arm] 146/95 H 125/77 Pulse Oximetry 97 97 94 Oxygen Delivery Room Air Room Air Room Air 03/18/25 15:21 03/18/25 15:36 03/18/25 20:26 Temperature 36.8 C 36.7 C 36.9 C Pulse Rate 73 Pulse Rate [Monitor] 73 67 Respiratory Rate 16 16 16 Blood Pressure 129/67 Blood Pressure [Left Arm] 120/68 137/82 Pulse Oximetry 99 95 98 Oxygen Delivery Room Air Room Air 03/19/25 05:34 Temperature 36.2 C L Pulse Rate 71 Pulse Rate [Monitor] Respiratory Rate 16 Blood Pressure 118/72 Blood Pressure [Left Arm] Pulse Oximetry 98 Oxygen Delivery <Britt Brown [facility] - Last Filed: 03/19/25 11:13> Results Labs Result Diagrams: 03/18/25 15:39 03/18/25 15:39 <Britt Brown [facility] - Last Filed: 03/19/25 11:13> Labs: Abnormal lab results 03/18/25 Range/Units 15:39 WBC 14.3 H (4.5-10.0) K/mm3 Hgb 13.8 L (14.0-18.0) g/dL MPV 11.6 H (7.4-10.4) fl Neut % (Auto) 82.7 H (45.5-73.1) % Lymph % (Auto) 9.0 L (18.3-44.2) % [place] # (Auto) 0.7 H (0.1-0.6) K/mm3 Abs Immat Gran (auto) 0.05 H (0.00-0.031) K/mm3 Absolute Neuts (auto) 11.8 H (1.3-6.7) K/mm3 Hemoglobin A1c 6.1 H (<5.7) % Triglycerides 229 H (<150) mg/dL Cholesterol 242 H (0-200) mg/dL H & H 03/18/25 Range/Units 15:39 Hgb 13.8 L (14.0-18.0) g/dL Hct 42.1 (42.0-52.0) % Coagulation 03/18/25 Range/Units 15:39 INR 1.0 All other labs normal. <MARLO De La Garza - Last Filed: 03/19/25 11:13>
--- NOTE | 2025-03-19 11:53 | WPDHPUPDATE1 ---
History and Physical Update Update Date/Time: 03/19/25 11:53 History and Physical has been reviewed, including an updated exam of the patient. There are NO changes in the patient's condition. Risks, benefits, and alternatives have been discussed and questions answered. Patient agrees to proceed with procedure.
[2025-03-19] MEDS: LACTATED RINGERS 1,000 ML 30 ML IV CONT (14:25)
--- NOTE | 2025-03-19 14:49 | WPDANESEPPF ---
Anes - Initial Pre Proc Eval Procedure: Operation Date: 03/19/25 17:00 Proposed Procedures p Open Reduction Internal Fixation Right Ankle Fracture - Tanner Garrett MD Date/Time: 03/19/25 14:49 Surgeon: Emeka Romero MD Pre Op Diagnosis: Right-Sided trimalleolar fracture Patient Data Age: 49 Gender: M Height: 1.8 m Weight: 104.2 kg Last Vital Signs Temp 36.2 C L 03/19/25 05:34 Pulse 71 03/19/25 05:34 Resp 16 03/19/25 05:34 BP 118/72 03/19/25 05:34 Pulse Ox 98 03/19/25 05:34 O2 Del Method Room Air 03/19/25 08:00 Allergies Allergy/AdvReac Type Severity Reaction Status Date / Time No Known Allergies Allergy Verified 03/19/25 14:48 Home Medications ?Medication ?Instructions ?Recorded ?Confirmed ?Type esomeprazole magnesium 20 mg 20 mg PO DAILY #1 cap 06/21/20 03/18/25 Rx capsule,delayed release (Nexium 24HR) rosuvastatin 5 mg tablet 5 mg PO DAILY #90 tabs 02/09/25 03/18/25 Rx Laboratory Tests 03/18/25 15:39 WBC 14.3 H K/mm3 (4.5-10.0) RBC 4.81 M/mm3 (4.6-6.20) Hgb 13.8 L g/dL (14.0-18.0) Hct 42.1 % (42.0-52.0) MCV 87.5 fl (80-100) MCH 28.7 pg (26-34) MCHC 32.8 g/dl (32-36) RDW 13.2 % (11.5-14.5) Plt Count 198 k/mm3 (150-375) MPV 11.6 H fl (7.4-10.4) Immature Gran % (Auto) 0.4 % (0-0.5) Neut % (Auto) 82.7 H % (45.5-73.1) Lymph % (Auto) 9.0 L % (18.3-44.2) [place] % (Auto) 4.9 % (2.6-8.5) Eos % (Auto) 2.4 % (0-4.4) Baso % (Auto) 0.6 % (0.2-1.2) Lymph # (Auto) 1.29 K/mm3 (0.9-3.2) [place] # (Auto) 0.7 H K/mm3 (0.1-0.6) Eos # (Auto) 0.3 K/mm3 (0-0.3) Baso # (Auto) 0.1 K/mm3 (0.0-0.1) Abs Immat Gran (auto) 0.05 H K/mm3 (0.00-0.031) Absolute Neuts (auto) 11.8 H K/mm3 (1.3-6.7) Absolute Nucleated RBC 0.000 K/mm3 (0.0-0.012) Nucleated RBC % 0.0 % (0.0-0.2) PT 12.9 Seconds (11.1-14.7) INR 1.0 APTT 24.4 Seconds (22.3-36.8) Sodium 139 mmol/L (137-145) Potassium 4.8 mmol/L (3.4-5.0) Chloride 106 mmol/L (98-107) Carbon Dioxide 22 mmol/L (22-30) Anion Gap 11 mmol/L (4-12) BUN 19 mg/dL (9-20) Creatinine 1.16 mg/dL (0.7-1.3) Estim Creat Clear Calc 84 ml/min Estimated GFR > 60 (59 - ) Glucose 95 mg/dL (65-110) Hemoglobin A1c 6.1 H % (<5.7) Calcium 9.9 mg/dL (8.4-10.2) Total Bilirubin 0.5 mg/dL (0.2-1.3) AST 38 U/L (17-59) ALT 33 U/L (6-50) Alkaline Phosphatase 41 U/L (38-126) Total Protein 7.8 g/dL (6.3-8.2) Albumin 4.6 g/dL (3.5-5.1) Triglycerides 229 H mg/dL (<150) Cholesterol 242 H mg/dL (0-200) LDL Cholesterol Direct 132 mg/dL HDL Direct 61 mg/dL Patient hx anesthesia problems: none Family hx anesthesia problems: none Results Review: All pre-operative results and documents have been reviewed as part of the pre-operative evaluation. [facility] Past Medical History Medical History (Updated 03/19/25 @ 11:50 by Tanner Garrett MD) Closed dislocation of ankle Gastroesophageal reflux disease Elevated hemoglobin A1c Mixed hyperlipidemia Surgical History Surgical History History of unilateral orchiectomy right Social History Social History Social History: Smoking packs per day: 0.25 Smoking cigarettes per day: 5.0 Years smoked: 10 Smoking pack-years: 2.50 Smoking status: Former smoker Tobacco type: cigarettes Second hand tobacco smoke exposure: No Smoking end date: 10/04/04 Alcohol intake: current Drinks per week: 3 Alcohol use details: Occasionally Substance use: never Substance use type: does not use Do You Feel Safe in your Home?: Yes Lack of Transportation: No Lack of Food: Never True Current Housing: I Have Housing Concerned About Future Housing: No Difficulty Paying Gas/Electric Bills: No Difficulty Paying for Meds: No Currently Unemployed: No Education: Decline to Answer Difficulty w/ Childcare or Family Care: No Living arrangements: with family Occupation/Education: occupation Gender identity (if verbalized by the patient): Male Sexual Orientation (if Verbalized by the Patient): Straight or Heterosexual Spiritual care concerns: No Anes - Eval Final PreProcedure Day of Procedure 03/19/25 14:49 Patient weight: obese Heart: regular rate and rhythm Lungs: clear to auscultation Airway: Mallampati scale class III Neurological: alert and oriented Last oral intake: >/= 8 hours ASA classification: II Emergent: no Anesthetic plan: proceed Anesthesia type and monitoring: general LMA and standard monitoring Results Review: All pre-operative results and documents have been reviewed as part of the pre-operative evaluation. Informed Consent: The patient's anesthetic plan and its attendant risks and benefits were discussed with the patient/family/POA. Questions were solicited and answers provided to the satisfaction of the patient/family/POA.
[2025-03-19] MEDS: ceFAZolin 2 GM/D5W 50 ML 2 GM/50 ML BAG IVPB (15:29)
[2025-03-19] MEDS: BUPIVACAINE/EPINEPHRINE 0.5% 50 ML VIAL 30 ML INFILTRATE (15:29)
--- NOTE | 2025-03-19 17:25 | W.PM.PROC2 ---
Procedure Note - Detailed Date of Procedure 03/19/25 Pre-op Diagnosis Right-Sided trimalleolar fracture Post-op Diagnosis Same Procedure Performed Open reduction internal fixation right ankle fracture with fixation of medial and lateral malleolus Surgeon Tanner Garrett MD [employer] 1st stylist assistant Anesthesia General Indications 49-year-old who fell and sustained a right ankle fracture dislocation. He presents now for operative stabilization. Description of Procedure After informed consent, the operative extremity was marked in the preoperative holding area. Patient received intravenous antibiotics. Patient was then taken to the operating room and underwent general anesthesia by the anesthesia team. They were positioned supine on the operating room table. A time-out was performed confirming the patient, site of the surgery, operative plan. Right Lower extremity then prepped and draped in the usual sterile surgical fashion using ChloraPrep skin solution. Foot and ankle exsanguinated and a thigh tourniquet inflated to 250 mmHg. Longitudinal incision made over the lateral ankle distal fibula with a 15 blade knife. Hemostasis controlled with electrocautery. Full-thickness soft tissue flaps developed and the fascia was incised in line with the skin incision. Fracture identified and cleared with a dental pick, irrigation and rongeur. Fracture reduced and held with bone-holding clamp. Image intensification confirmed reduction of the fracture and the ankle mortise. Short oblique fracture pattern did not allow lag screw fixation. Neutralization with a lateral plate with unicortical screws distal to fracture and bicortical screws proximal to the fracture. 2 screws placed across the syndesmosis into the tibia for added fixation given the patient's diabetes and osteoporosis. Good alignment and stability of the fracture noted. Image intensification used to confirm reduction of the fracture and placement of the hardware. Fascia repaired with 00 Vicryl interrupted suture. Subcutaneous tissue repaired with 000 Monocryl interrupted suture and 0000 nylon running suture. Medial side then addressed. Longitudinal incision made over the medial ankle medial malleolus with a 15 blade knife. Hemostasis controlled with electrocautery. Fracture reduced and held with K-wire. Image intensification confirmed reduction of the fracture and the ankle mortise. Fixation achieved with a 4.0 mm partially threaded cannulated screw x2. Good alignment and stability of the fracture noted. Image intensification used to confirm reduction of the fracture and placement of the hardware. Wound thoroughly irrigated with antibiotic solution. Subcutaneous tissue repaired with 000 Monocryl interrupted suture. Stress of the ankle performed with good stability of the ankle mortise in all directions. Sterile dressings applied followed by bulky padded dressing with fiberglass cast. Patient awoken from anesthesia, extubated and taken to the recovery room in stable condition. All sponge, needle and instrument counts correct at the end of the case. Palpable dorsalis pedis pulse noted prior to dressing. Implants Arthrex distal fibula plate and screws, 4.0 mm cannulated screw x2 Estimated Blood Loss 20 Tourniquet Time Total Tourniquet Time: 55 Urine Output 375 Drains No Packing No Pathology None sent Complications None Condition Stable Disposition PACU [facility] Billing Surgery - Charge Forward: Surgery Billing ([id number])
--- NOTE | 2025-03-19 18:30 | PC.NURSE ---
Returned from PACU per [bed ]. Report received from [Alysia ].
[2025-03-19] MEDS: ASPIRIN 325 MG ENTERIC TABLET PO (21:24)
[2025-03-19] MEDS: ROSUVASTATIN 20 MG TABLET PO (21:25)
[2025-03-19] MEDS: HYDROcodone/acetaminophen (*CRX) 7.5-325 MG TABLET 1 TAB PO (21:42)
[2025-03-20 00:02] VITALS: BP 120/66; PULSE 73; RESP 12; TEMP 36.5; O2SAT 97
[2025-03-20] MEDS: ceFAZolin 1 GM/NS 50 ML 1 GM/50 ML BAG IVPB ×3 (01:07→15:05)
[2025-03-20] MEDS: HYDROcodone/acetaminophen (*CRX) 5-325 MG TABLET 1 TAB PO ×3 (01:55→13:09)
[2025-03-20 04:02] VITALS: BP 128/66; PULSE 65; RESP 14; TEMP 36.2; O2SAT 96
--- NOTE | 2025-03-20 07:21 | P.PNIM_ITS ---
Progress Note: A&P Assessment and Plan (1) Trimalleolar fracture of right ankle: Qualifiers: Encounter type: initial encounter Fracture type: closed Qualified Code(s): S82.851A - Displaced trimalleolar fracture of right lower leg, initial encounter for closed fracture Code(s): S82.851A - Displaced trimalleolar fracture of right lower leg, initial encounter for closed fracture Status: Acute Assessment and Plan: Mechanical fall resulting in right ankle deformity. Denies LOC or head strike. - Right ankle XR: Complex trimalleolar fracture with indeterminate preservation of the dome of the talus. - S/P closed reduction and splinting in ER with continued displacement though better aligned than initial XR - Analgesics - PT/OT, non weight bearing per ortho recommendations - Ortho consulted s/p for ORIF right ankle with fixation of medial and lateral malleolus Dr. Garrett 03/20 (2) Mixed hyperlipidemia: Code(s): E78.2 - Mixed hyperlipidemia Status: Chronic Assessment and Plan: -Lipid panel remains abnormal including elevated triglycerides 229, elevated total cholesterol 242, and LDL 137. Crestor dose from 5 mg to 20 mg and patient in agreement - Patient also sometimes takes baby aspirin for CV prevention, will hold for now since he is going to OR tomorrow for ankle repair. (3) Gastroesophageal reflux disease: Qualifiers: Esophagitis presence: with esophagitis Esophagitis bleeding: without hemorrhage Qualified Code(s): K21.00 - Gastro-esophageal reflux disease with esophagitis, without bleeding Code(s): K21.9 - Gastro-esophageal reflux disease without esophagitis Status: Chronic Assessment and Plan: -Continue PPI and PRN meds if needed for heartburn (4) Elevated hemoglobin A1c: Code(s): R73.09 - Other abnormal glucose Status: Acute Assessment and Plan: - Patient prediabetic with A1c 6.1 on admission - Educated and encouraged healthy diet and exercise - Follow up with PCP Subjective Date/time seen: 03/20/25 07:21 Interval history: 49-year-old male patient with a past history of hyperlipidemia with elevated triglycerides and GERD who presents to the hospital for displaced right trimalleolar ankle fracture. Patient was carrying a ladder on a slope when his right ankle twisted under him causing immediate deformity. Review of Systems Review of Systems: All systems reviewed & are unremarkable except as noted in HPI and below Exam Narrative: AF HR General: male in no acute respiratory distress who is nontoxic appearing, sitting gup in bed HEENT: Normocephalic. Atraumatic. Extraocular movement intact. Sclera clear and anicteric. No facial asymmetry. Chest: Lungs are clear to auscultation bilaterally. No wheezes or crackles. CV: Heart was regular rate and rhythm. S1/S2. No murmurs, gallops, or rubs. Abd: Abdomen was soft. Nontender. Nondistended. Positive bowel sounds. Ext: No clubbing, cyanosis, or edema. DP pulses bilaterally. Right lower extremity in soft cast. Sensation intact. Wiggling toes. Neuro: Patient is alert and oriented x3. Speech is clear. Objective Data Vital Signs Vital Signs: Vital Signs - 24 hr 03/19/25 08:00 03/19/25 14:25 03/19/25 17:00 Temperature 99.8 F H 98.0 F Pulse Rate 86 74 Respiratory Rate 14 14 Blood Pressure 144/82 H 115/70 Pulse Oximetry 100 98 Oxygen Delivery Room Air Room Air Room Air 03/19/25 17:15 03/19/25 17:30 03/19/25 17:45 Temperature Pulse Rate 78 81 79 Respiratory Rate 13 11 L 12 Blood Pressure 136/86 131/88 127/85 Pulse Oximetry 100 93 94 Oxygen Delivery Room Air Room Air Room Air 03/19/25 18:00 03/19/25 18:15 03/19/25 18:17 Temperature 97.9 F Pulse Rate 82 78 76 Respiratory Rate 13 12 18 Blood Pressure 137/82 131/79 143/93 H Pulse Oximetry 91 94 95 Oxygen Delivery Room Air Room Air 03/19/25 18:32 03/19/25 19:02 03/19/25 20:02 Temperature 98.4 F 98.4 F 97.0 F L Pulse Rate 76 69 67 Respiratory Rate 18 18 14 Blood Pressure 142/92 H 132/82 142/82 H Pulse Oximetry 97 98 93 Oxygen Delivery 03/20/25 00:02 03/20/25 04:02 Temperature 97.7 F 97.1 F L Pulse Rate 73 65 Respiratory Rate 12 14 Blood Pressure 120/66 128/66 Pulse Oximetry 97 96 Oxygen Delivery Intake/Output Intake/Output: Intake & Output 03/17/25 03/18/25 03/19/2503/20/25 23:59 23:59 23:59 23:59 Intake Total 069 79 8047 Output Total 725 1250 400 Balance -485 -1200 1150 Meds/Results Medications: Active Medications Generic Name Dose Route Start Last Admin Trade Name Freq PRN Reason Stop Dose Admin Acetaminophen 650 mg 03/18/25 19:29 Acetaminophen 325 Mg Tablet PO Q4H PRN Mild Pain (1-3) or Fever Hydrocodone Bitart/Acetaminophen 1 tab 03/18/25 19:29 03/20/25 01:55 Hydrocodone/Acetaminophen (*Crx) 5-325 Mg Tablet PO 1 tab Q4H PRN Administration Pain Rated 4-6 Hydrocodone Bitart/Acetaminophen 1 tab 03/19/25 18:17 03/19/25 21:42 Hydrocodone/Acetaminophen (*Crx) 7.5-325 Mg Tablet PO 1 tab Q3H PRN Administration Pain Rated 4-6 Aspirin 325 mg 03/19/25 21:00 03/19/25 21:24 Aspirin 325 Mg Enteric Tablet PO 325 mg Q12HR YOVANY Administration Hydromorphone HCl 0.5 mg 03/18/25 15:44 03/19/25 12:01 Hydromorphone Hcl Inj (*Crx) 2 Mg/Ml Vial IV PUSH 0.5 mg Q4H PRN Administration Pain Rated 7-10 Cefazolin Sodium 1 gm in 50 mls @ 100 mls/hr 03/20/25 00:00 03/20/25 01:37 Ancef 1 Gm/Ns 50 Ml IVPB 03/20/25 16:29 Infused Q8H [facility] Infusion Ondansetron HCl 4 mg 03/18/25 19:34 Ondansetron Inj 4 Mg/2 Ml Vial IV PUSH Q4H PRN Nausea And Vomiting Pantoprazole Sodium 20 mg 03/20/25 09:00 Pantoprazole Sod Sesquihydrate 20 Mg Tab PO DAILY YOVANY Polyethylene Glycol 17 gm 03/20/25 09:00 Polyethylene Glycol 3350 17 Gm Powd.Pack PO QAM [facility] Rosuvastatin Calcium 20 mg 03/18/25 21:20 03/19/25 21:25 Rosuvastatin 20 Mg Tablet PO 20 mg HS YOVANY Administration Senna/Docusate Sodium 2 tab 03/20/25 09:00 Senna/Docusate Sodium Tablet PO BID [facility] Radiology Results: ITS Impressions Ankle X-Ray 03/18/25 15:35 IMPRESSION: As above Chest X-Ray 03/18/25 15:37 IMPRESSION: No focal infiltrate or effusion. Asymmetry of the left upper lobe possibly vascular in origin for which noncontrast enhanced CT is suggested as nonemergent follow-up Intraoperative X-Ray 03/19/25 17:24 IMPRESSION: 1. Near-anatomic alignment post open reduction internal fixation of a trimalleolar fracture of the right ankle. Quality VTE Prophylaxis VTE prophylaxis: mechanical ordered
[2025-03-20 07:34] LABS: Hematocrit 40.5 % (42.0-52.0); Hemoglobin 13.2 g/dL (14.0-18.0); Mean Corpuscular HGB Conc 32.6 g/dl (32-36); Mean Corpuscular Hemoglobin 28.9 pg (26-34); Mean Corpuscular Volume 88.6 fl (80-100); Mean Platelet Volume 11.7 fl (7.4-10.4); Platelet Count Result 165 k/mm3 (150-375); Red Blood Count 4.57 M/mm3 (4.6-6.20); Red Cell Distribution Width 13.1 % (11.5-14.5); White Blood Count 11.2 K/mm3 (4.5-10.0)
[2025-03-20 07:55] LABS: Alanine Aminotransferase 29 U/L (6-50); Albumin Level 4.2 g/dL (3.5-5.1); Alkaline Phosphatase 40 U/L (38-126); Anion Gap 8 mmol/L (4-12); Aspartate Amino Transferase 35 U/L (17-59); Bilirubin,Total 0.5 mg/dL (0.2-1.3); Blood Urea Nitrogen 15 mg/dL (9-20); Calcium 9.2 mg/dL (8.4-10.2); Carbon Dioxide 23 mmol/L (22-30); Chloride 106 mmol/L (98-107); Estimated CRCL calculation 115 ml/min; Estimated Glomerular Filt Rate > 60; Glucose 115 mg/dL (65-110); Potassium 4.3 mmol/L (3.4-5.0); Sodium 137 mmol/L (137-145); Total Protein 7.2 g/dL (6.3-8.2)
[2025-03-20] MEDS: ASPIRIN 325 MG ENTERIC TABLET PO (07:55)
[2025-03-20] MEDS: polyethylene glycoL 3350 17 GM POWD.PACK PO (07:55)
[2025-03-20] MEDS: SENNA/DOCUSATE SODIUM TABLET 2 TAB PO (07:56)
[2025-03-20] MEDS: PANTOPRAZOLE SOD SESQUIHYDRATE 20 MG TAB PO (07:56)
[2025-03-20 08:02] VITALS: BP 138/73; PULSE 76; RESP 16; TEMP 36.5; O2SAT 99
--- NOTE | 2025-03-20 08:59 | PM.PNORT ---
Progress Note: A&P Assessment and Plan (1) Trimalleolar fracture of right ankle: Qualifiers: Encounter type: initial encounter Fracture type: closed Qualified Code(s): S82.851A - Displaced trimalleolar fracture of right lower leg, initial encounter for closed fracture Code(s): S82.851A - Displaced trimalleolar fracture of right lower leg, initial encounter for closed fracture Status: Acute Assessment and Plan: POD #1: Open reduction internal fixation right ankle fracture with fixation of medial and lateral malleolus Continue PT/OT. NWB. Walker/Crutches. HIGH FALL RISK. Continue pain control. Ice Ankle. Protect skin. DVT prophylaxis with Aspirin. SCDs. Incentive Spirometry Use reviewed. Keep splint c/d/i. Bowel Regimen. Dispo: Home pending progress with PT/OT Follow up in 1 week in the [facility] wound clinic. Plan Reviewed history, exam, radiographs and current labs with attending MD and covering surgeon, Dr. Garrett, who agrees with current plan as indicated above. No further recommendations from Dr. Garrett at this time. Subjective Subjective Date/Time Seen: 03/20/25 08:59 Post Op day: 1 Interval history: POD #1: Open reduction internal fixation right ankle fracture with fixation of medial and lateral malleolus Patient doing well. Pain well controlled. No new concerns. Working well with OT. Awaiting PT evaluation. Hopeful for d/c home today. Review of Systems Review of Systems: All systems reviewed & are unremarkable except as noted in HPI and below Exam Const: General: comfortable and no acute distress Resp: Effort & Inspection: normal respiratory effort Cardio: Rate: regular rate Rhythm: regular rhythm GI: GI Palp: Yes Soft to palpation Skin: General skin exam: normal color Neuro: Speech: normal speech Sensory Exam: normal sensation Extrem: Right lower extremity: knee Details: normal to inspection and normal ROM; no tenderness and no swelling, lower leg (splint c/d/i), ankle (splint c/d/i. ) and foot (moves toes, sensation intact. splint c/d/i. ) Objective Data Vital Signs Vital Signs: Vital Signs - 24 hr 03/19/25 14:25 03/19/25 17:00 03/19/25 17:15 Temperature 37.7 C H 36.7 C Pulse Rate 86 74 78 Respiratory Rate 14 14 13 Blood Pressure 144/82 H 115/70 136/86 Pulse Oximetry 100 98 100 Oxygen Delivery Room Air Room Air Room Air 03/19/25 17:30 03/19/25 17:45 03/19/25 18:00 Temperature Pulse Rate 81 79 82 Respiratory Rate 11 L 12 13 Blood Pressure 131/88 127/85 137/82 Pulse Oximetry 93 94 91 Oxygen Delivery Room Air Room Air Room Air 03/19/25 18:15 03/19/25 18:17 03/19/25 18:32 Temperature 36.6 C 36.9 C Pulse Rate 78 76 76 Respiratory Rate 12 18 18 Blood Pressure 131/79 143/93 H 142/92 H Pulse Oximetry 94 95 97 Oxygen Delivery Room Air 03/19/25 19:02 03/19/25 20:02 03/20/25 00:02 Temperature 36.9 C 36.1 C L 36.5 C Pulse Rate 69 67 73 Respiratory Rate 18 14 12 Blood Pressure 132/82 142/82 H 120/66 Pulse Oximetry 98 93 97 Oxygen Delivery 03/20/25 04:02 Temperature 36.2 C L Pulse Rate 65 Respiratory Rate 14 Blood Pressure 128/66 Pulse Oximetry 96 Oxygen Delivery Intake/Output Intake/Output: Intake & Output 03/17/25 03/18/25 03/19/25 03/20/25 23:59 23:59 23:59 23:59 Intake Total 315 67 6710 Output Total 725 1250 400 Balance -485 -1200 1150 Meds/Results Medications: Active Medications Generic Name Dose Route Start Last Admin Trade Name Freq PRN Reason Stop Dose Admin Acetaminophen 650 mg 03/18/25 19:29 Acetaminophen 325 Mg Tablet PO Q4H PRN Mild Pain (1-3) or Fever Hydrocodone Bitart/Acetaminophen 1 tab 03/18/25 19:29 03/20/25 08:00 Hydrocodone/Acetaminophen (*Crx) 5-325 Mg Tablet PO 1 tab Q4H PRN Administration Pain Rated 4-6 Hydrocodone Bitart/Acetaminophen 1 tab 03/19/25 18:17 03/19/25 21:42 Hydrocodone/Acetaminophen (*Crx) 7.5-325 Mg Tablet PO 1 tab Q3H PRN Administration Pain Rated 4-6 Aspirin 325 mg 03/19/25 21:00 03/20/25 07:55 Aspirin 325 Mg Enteric Tablet PO 325 mg Q12HR YOVANY Administration Hydromorphone HCl 0.5 mg 03/18/25 15:44 03/19/25 12:01 Hydromorphone Hcl Inj (*Crx) 2 Mg/Ml Vial IV PUSH 0.5 mg Q4H PRN Administration Pain Rated 7-10 Cefazolin Sodium 1 gm in 50 mls @ 100 mls/hr 03/20/25 00:00 03/20/25 07:56 Ancef 1 Gm/Ns 50 Ml IVPB 03/20/25 16:29 100 mls/hr Q8H YOVANY Administration Ondansetron HCl 4 mg 03/18/25 19:34 Ondansetron Inj 4 Mg/2 Ml Vial IV PUSH Q4H PRN Nausea And Vomiting Pantoprazole Sodium 20 mg 03/20/25 09:00 03/20/25 07:56 Pantoprazole Sod Sesquihydrate 20 Mg Tab PO 20 mg DAILY YOVANY Administration Polyethylene Glycol 17 gm 03/20/25 09:00 03/20/25 07:55 Polyethylene Glycol 3350 17 Gm Powd.Pack PO 17 gm QAM YOVANY Administration Rosuvastatin Calcium 20 mg 03/18/25 21:20 03/19/25 21:25 Rosuvastatin 20 Mg Tablet PO 20 mg HS YOVANY Administration Senna/Docusate Sodium 2 tab 03/20/25 09:00 03/20/25 07:56 Senna/Docusate Sodium Tablet PO 2 tab BID YOVANY Administration Radiology Results: ITS Impressions Ankle X-Ray 03/18/25 15:35 IMPRESSION: As above Chest X-Ray 03/18/25 15:37 IMPRESSION: No focal infiltrate or effusion. Asymmetry of the left upper lobe possibly vascular in origin for which noncontrast enhanced CT is suggested as nonemergent follow-up Intraoperative X-Ray 03/19/25 17:24 IMPRESSION: 1. Near-anatomic alignment post open reduction internal fixation of a trimalleolar fracture of the right ankle. Labs Labs: Laboratory Results - last 24 hr 03/20/25 07:28 WBC 11.2 H RBC 4.57 L Hgb 13.2 L Hct 40.5 L MCV 88.6 MCH 28.9 MCHC 32.6 RDW 13.1 Plt Count 165 MPV 11.7 H Sodium 137 Potassium 4.3 Chloride 106 Carbon Dioxide 23 Anion Gap 8 BUN 15 Creatinine 0.84 Estim Creat Clear Calc 115 Estimated GFR > 60 Glucose 115 H Calcium 9.2 Total Bilirubin 0.5 AST 35 ALT 29 Alkaline Phosphatase 40 Total Protein 7.2 Albumin 4.2
[2025-03-20 12:02] VITALS: BP 157/86; PULSE 75; RESP 16; TEMP 36.7; O2SAT 99
--- NOTE | 2025-03-20 14:45 | P.DS_ITS ---
DS: Admitting Diagnosis Discharge Date 03/20/2025 Admitting Diagnosis trimalleolar fracture of right ankle mixed hld gerd elevated hemoglobin a1c DS: Discharge Diagnosis Discharge Diagnosis (1) Trimalleolar fracture of right ankle: Qualifiers: Encounter type: initial encounter Fracture type: closed Qualified Code(s): S82.851A - Displaced trimalleolar fracture of right lower leg, initial encounter for closed fracture Code(s): S82.851A - Displaced trimalleolar fracture of right lower leg, initial encounter for closed fracture Status: Acute (2) Mixed hyperlipidemia: Code(s): E78.2 - Mixed hyperlipidemia Status: Chronic (3) Gastroesophageal reflux disease: Qualifiers: Esophagitis bleeding: without hemorrhage Esophagitis presence: with esophagitis Qualified Code(s): K21.00 - Gastro-esophageal reflux disease with esophagitis, without bleeding Code(s): K21.9 - Gastro-esophageal reflux disease without esophagitis Status: Chronic (4) Elevated hemoglobin A1c: Code(s): R73.09 - Other abnormal glucose Status: Acute DS: Summary Hospital Course Reason for hospitalization: trimalleolar fracture of right ankle mixed hld gerd elevated hemoglobin a1c Hospital Course: 49-year-old male patient with a past history of hyperlipidemia with elevated triglycerides and GERD who presents to the hospital for displaced right trimalleolar ankle fracture. Patient was carrying a ladder on a slope when his right ankle twisted under him causing immediate deformity. Right ankle XR showed complex trimalleolar fracture with indeterminate preservation of the dome of the talus. Patient underwent a closed reduction and splinting in ER with continued displacement though better aligned than initial XR on reimaging. Ortho was consulted and patient underwent an ORIF right ankle with fixation of medial and lateral malleolus Dr. Lozada 03/20. Patient is to remain non weight bearing. He worked well with PT/OT who recommended home. Patient is to follow up with ortho in 1 week. Lipid panel was checked during admission and showed continued cholesterol elevation on patient's current dose of Crestor. Cut her dose was increased at that time. During admission patient was noted to have an elevated glucose level. An A1c was obtained and was 6.1. Educated patient on prediabetes encouraged healthy diet/exercise. Patient is to follow up with his primary care provider for further treatment. Patient has no complaints at time of discharge denies chest pain, shortness a breath, palpitations, nausea/vomiting, abdominal pain, and tingling/numbness/burning/shooting pain to the lower extremity. Patient discharged home with family in a stable condition. He is to follow up with his primary care provider in 1 week and Ortho as scheduled. Status at Discharge Functional status at discharge: uses cane/walker Time Spent with Patient Time attestation: Total time spent providing and/or coordinating discharge services: Time spent: Greater than 30 minutes Exam Narrative: AF HR 75 RR 16 Spo2 99 BP 157/86 General: male in no acute respiratory distress who is nontoxic appearing, sitting gup in bed HEENT: Normocephalic. Atraumatic. Extraocular movement intact. Sclera clear and anicteric. No facial asymmetry. Chest: Lungs are clear to auscultation bilaterally. No wheezes or crackles. CV: Heart was regular rate and rhythm. S1/S2. No murmurs, gallops, or rubs. Abd: Abdomen was soft. Nontender. Nondistended. Positive bowel sounds. Ext: No clubbing, cyanosis, or edema. DP pulses bilaterally. Right lower extremity in soft cast. Sensation intact. Wiggling toes. Neuro: Patient is alert and oriented x3. Speech is clear. DS: Data Data Completed and Pending Completed studies during hospitalization: ankle xr ankle xr chest xr intraoperative xr Labs on day of discharge: Labs from last 24 hours 03/20/25 07:28 WBC 11.2 H RBC 4.57 L Hgb 13.2 L Hct 40.5 L MCV 88.6 MCH 28.9 MCHC 32.6 RDW 13.1 Plt Count 165 MPV 11.7 H Sodium 137 Potassium 4.3 Chloride 106 Carbon Dioxide 23 Anion Gap 8 BUN 15 Creatinine 0.84 Estim Creat Clear Calc 115 Estimated GFR > 60 Glucose 115 H Calcium 9.2 Total Bilirubin 0.5 AST 35 ALT 29 Alkaline Phosphatase 40 Total Protein 7.2 Albumin 4.2 Discharge Plan Discharge Attending physician on discharge: Emeka Romero Consulting providers: Rena El; Makenna Lozada Discharging Clinician: Rena El Anticipated Discharge Date/Time: 03/20/25 14:40 Patient Disposition: Home Activity: no shower, no driving and follow weight bearing status Diet: as tolerated Wound Care Instructions: follow printed instructions Discharge Instructions: MAKENNA LOZADA M.D. [facility] [address] [place] [id number] POST OPERATIVE DISCHARGE INSTRUCTIONS FOOT/ANKLE SURGERY * Elevate the involved extremity on pillows. * For the first 48 hours, make sure that the foot is above the level of your heart * Carefully observe the exposed toes for evidence of swelling or discoloration. * If the dressing is uncomfortable or tight, call the Dr?s office. * Keep the dressing clean and dry. Remove dressing only as directed by doctor. Use postoperative shoe when up. If splint in place, keep clean and dry and leave in place until your follow up appointment. * If the pain medication does not provide adequate relief, please call Dr?s office. * Take other medication as prescribed. * Please call Dr?s office to confirm follow-up appointment for 1 week. * If you have any questions, please call the Dr?s office. * Diet as tolerated. * Activity: X___Restrictions as follows: no weight bearing on operative leg; crutches or walker for ambulation * Do not drive for 24 hours, unless otherwise instructed. * Additional instructions: Cholesterol levels remain elevated on current rosuvastatin dose. Rosuvastatin dose increased to 20 mg daily. Follow up with PCP about medication adjustment. Patient is prediabetic Encourage healthy diet and exercise Follow up with PCP Return to the emergency department if he developed sudden shortness of breath, chest pain, nausea, vomiting, upset stomach or intractable diarrhea Return to the emergency department if you develop fever greater than 101.5 Follow-up with the primary care physician within 1-2 weeks Thank you for [facility] for your healthcare needs Patient Instructions: Prediabetes (GEN), Mediterranean Diet (DC) Patient Language: Azeri Stand Alone Forms: General Discharge Information Follow-up/Referrals: Makenna Lozada MD [Physician] - 03/28/25 10:30 am Discharge Medications: New hydrocodone-acetaminophen 5-325 mg Tablet 1 tablet PO Q4-6H PRN (Reason: pain) Qty: 30 0RF aspirin 325 mg Tablet,Delayed Release (Dr/Ec) 325 mg PO Q12HR 28 Days Qty: 56 0RF Continued esomeprazole magnesium [Nexium 24HR] 20 mg capsule,delayed release(DR/EC) 20 mg PO DAILY Qty: 1 0RF Changed rosuvastatin 5 mg tablet 20 mg PO DAILY Qty: 90 1RF Date of admission: 03/18/25 15:44 Primary Care Provider: Levi Rothman Admitting Provider: Emeka Romero Attending physician on admission: Emeka Romero Condition: Stable Hospitalist MIPS Heart Failure (Exclusion) Patient has history of Heart Transplant or Left Ventricular Assistive Device?: No IF YES, STOP HERE Heart Failure (Qualifier) Patient has current or prior documentation of LVEF less than or equal to 40%, or mod/servere depressed LVSF?: No IF NO, STOP HERE
== END 2025-03-20 16:48 | disposition home or self-care (01) ==
LOC: ANHED 15:46 → ANH3MEDSUR 16:24
PROVIDERS: Nurse Practitioner; Orthopaedic Surgery; Student in an Organized Health Care Education/Training Program; Admitting Provider Internal Medicine; Emergency Provider Emergency Medicine; PCP Family Medicine; Visit Provider Internal Medicine
PROC: (CPT 27822; principal; 2025-03-19 17:00)
DX: S82.851A Displaced trimalleolar fracture of right lower leg, initial encounter for closed fracture (principal); W18.40XA Slipping, tripping and stumbling without falling, unspecified, initial encounter; M81.0 Age-related osteoporosis without current pathological fracture; E78.2 Mixed hyperlipidemia; K21.9 Gastro-esophageal reflux disease without esophagitis; R73.09 Other abnormal glucose; E66.9 Obesity, unspecified; Z68.32 Body mass index [BMI] 32.0-32.9, adult; Z87.891 Personal history of nicotine dependence; Z79.899 Other long term (current) drug therapy
CPT/HCPCS: 27822; 27818; 36415; 71045; 73610; 80053; 80061; 83036; 85025; 85027; 85610; 85730; 93005; 96365; 96376; 97161; 97165; 99199; 99285; A9270; C1713; C1769; G0378; J0690; J1100; J1171; J2250; J2405; J2704; J3010; J7030; J7120

== ENCOUNTER 2025-07-26 12:32 | Outpatient (CLI) | payer BC, SELFPAY ==
--- NOTE | ~2025-07-26 | CT_ITS ---
CT diagnostic chest wo con HISTORY:R93.89 - Abnormal findings on diagnostic imaging of other... COMPARISON: None. TECHNIQUE: Axial images of the chest were obtained without infusion of intravenous contrast. Dose optimization technique was utilized. FINDINGS: The examination demonstrates no pulmonary nodules, infiltrates and/or effusions. Cardiac size and mediastinal configuration are normal in appearance. No hilar or mediastinal lymphadenopathy is seen. The thoracic aorta is normal in caliber. Osseous structures are intact. IMPRESSION: No acute cardiopulmonary process. All CT scans at this facility are performed using low dose modulation techniques as appropriate to perform exam including the following: automated exposure control; use of iterative reconstruction technique; adjustment of the mA and/or kV according to patient size (this includes techniques or standardized protocols for targeted exams where dose is matched to indication/reason for exam). Reviewed, dictated and finalized at location S. IMPRESSION: No acute cardiopulmonary process. All CT scans at this facility are performed using low dose modulation techniqu es as appropriate to perform exam including the following: automated exposure c ontrol; use of iterative reconstruction technique; adjustment of the mA and/or kV according to patient size (this includes techniques or standardized protocol s for targeted exams where dose is matched to indication/reason for exam).
--- OUTSIDE RECORDS SUMMARY | 2025-07-26 13:22 | XMS_ITS | Clinical Summary ---
Author Organization [facility] Address [facility] [place] [address] Care Team Providers Care Er Nurse Name Role Phone Levi Rothman MD Primary Care Provider [phone] Allergies No known active allergies Medications ibuprofen (MOTRIN) 200 MG tablet Take 200 mg by mouth every 6 (six) hours as needed for Pain. Active Multiple Vitamin (MULTIVITAMIN ADULT OR) Active Active Problems No known active problems Family History Medical History Relation Comments Heart Attack Father Hypertension Mother Relation Status Comments Father Mother Social History Tobacco Use Types Packs/Day Years Used Date Smoking Tobacco: Former Smokeless Tobacco: Never Tobacco Cessation:Counseling Given: No Comments:NA Alcohol Use Standard Drinks/Week Comments Yes 6.7 (1 standard drink = 0.6 oz p ure alcohol) PHQ-2 Answer Date Recorded PHQ-2 Score - If the patient scores above 3, please move on to questions 3-9 0 04/29/2022 Sex and Gender Information Value Date Recorded Sex Assigned at Not on file Legal Sex Male 8:33 AM CDT Gender Identity Not on file Sexual Orientation Not on file Last Filed Vital Signs Vital Sign Reading Time Taken Comments Blood Pressure 124/65 06/29/2022 8:46 AM CDT Pulse 74 06/29/2022 8:46 AM CDT Temperature - - Respiratory Rate - - Oxygen Saturation - - Inhaled Oxygen Concentration - - Weight 93.4 kg (206 lb) 06/29/2022 8:46 AM CDT Height 180.3 cm (5' 11) 06/29/2022 8:46 AM CDT Body Mass Index 28.73 06/29/2022 8:46 AM CDT Plan of Treatment Health Maintenance Due Date Last Done Comments Colorectal Cancer Screening Colonoscopy (10 Years) 1976 Annual Physical 1979 Hepatitis C 1994 DTaP, Tdap and Td Vaccines ( 1 - Tdap) 1995 Hepatitis B Vaccines (1 of 3 - 19+ 3-dose series) 1995 COVID-19 Vaccine (3 - 2024-2 6 season) 2025 08/08/2021, 10/17/2020 Influenza Adult (#1) 2025 08/08/2021 Hepatitis A Vaccines Aged Out No long er eligible based on patient's age to complete this topic Meningococcal B Vaccine Aged Out No l onger eligible based on patient's age to complete this topic Meningococcal Vaccine Aged Out No [place] eligible based on patient's age to complete this topic Pneumococcal Vaccine: Pediatrics (0 to 5 Years) and At-Risk Patients (6 to 49 Years) Aged Out No longer eligible b ased on patient's age to complete this topic RSV Immunizations Under 20 Months Aged Out No longer eligible b ased on patient's age to complete this topic Insurance [facility] Care Teams Er Nurse Relationship Specialty Start Date End Date Levi Rothman MD [address] [place] [address] PCP - General FAMILY PRACTICE 04/29/22
--- OUTSIDE RECORDS SUMMARY | 2025-07-26 13:22 | XMS_ITS | Clinical Summary ---
Author Organization [facility] Address [address] [place] [id number] Care Team Providers Care Pr Manager Name Role Phone Unavailable Primary Care Provider [...] Q 5 years 2021 INFLUENZA VACCINE (#1) 2025 Insurance [facility] OPEN ACCESS PLUS
== END 2025-07-26 12:33 | disposition home or self-care (01) ==
PROVIDERS: PCP Family Medicine
DX: R93.89 Abnormal findings on diagnostic imaging of other specified body structures (principal)
CPT/HCPCS: 71250